=== PATIENT | female | born 1990 | race Two or more races ===

== ENCOUNTER 2024-07-05 18:41 | Emergency (ER) | payer MEDICAID, OTHER ==
[~2024-07-05] VITALS: Ht 170.2 cm; Wt 97.0 kg
[2024-07-05 19:18] LABS: Eosinophils # (auto) 0.1 10 ^3/uL (0-0.8); Lymphocytes # (auto) 1.5 10 ^3/uL (0.4-5.4); Monocytes # (auto) 0.5 10 ^3/uL (0-1.3); Neutrophils # (auto) 6.1 10 ^3/uL (1.6-8.6); White Blood Cell 8.2 10^3/uL (4.4-10.8)
[2024-07-05 19:19] LABS: Basophils # (auto) 0 10 ^3/uL (0-0.2); Basophils % (auto) 0.6 % (0.0-2.0); Eosinophils % (auto) 1.6 % (0.0-7.0); Hematocrit 38.7 % (36.0-46.0); Hemoglobin 12.6 g/dL (12.2-16.2); Mean Corpuscular Hemoglobin 26.2 pg (28.0-32.0); Mean Corpuscular Hgb Conc. 32.4 g/dL (32.0-36.0); Mean Corpuscular Volume 80.9 fL (80.0-100.0); Monocytes % (auto) 5.7 % (0.0-12.0); Neutrophils % (auto) 74.1 % (37.0-80.0); Platelet Count (auto) 274 10^3/uL (140-450); Red Blood Cells 4.78 10^6/uL (4.0-5.20); Red Cell Distribution Width 15.4 % (11.8-14.3)
[2024-07-05 19:23] LABS: Chloride 103 mmol/L (98-107); Sodium 138 mmol/L (136-145)
[2024-07-05 19:24] LABS: Anion Gap 10 (5-15); Carbon Dioxide 25 mmol/L (20-31)
[2024-07-05 19:29] LABS: BUN/Creatinine Ratio 12.7 (10.0-20.0); Blood Urea Nitrogen 10 mg/dL (9-23); Glucose 94 mg/dL (74-106)
[2024-07-05 19:30] LABS: Calcium 10.4 mg/dL (8.7-10.4)
[2024-07-05 20:25] LABS: Urine Bacteria None Seen /hpf (None Seen)
[2024-07-05 20:43] LABS: Urine Blood 3+ /uL (Negative); Urine Clarity Clear (Clear); Urine Color Yellow (Yellow); Urine Mucus FEW (None Seen); Urine Protein, UAD TRACE (Negative); Urine Specific Gravity 1.026 (1.001-1.035); Urine Squamous Epithelial Cell FEW /hpf (<5); Urine Urobilinogen Normal (Negative); Urine WBC 3 /HPF (0-5); Urine pH 5.5 (5.0-9.0)
[2024-07-05 21:19] VITALS: BP 118/48; PULSE 85; RESP 14; TEMP 98.8; O2SAT 100
--- NOTE | 2024-07-05 21:54 | DVH ---
OB EVALUATION, LESS THAN 14 WEEKS CLINICAL HISTORY: Vaginal bleed COMPARISON: None TECHNIQUE: Grayscale, color-flow Doppler, and spectral Doppler ultrasound of the pelvis is performed by transabdominal and transvaginal technique. FINDINGS: The uterus measures approximately 8.0 x 5.2 x 4.0 cm. Heterogeneous rounded lesion in the uterine bod y measuring approximately 1.6 cm. Intrauterine gestational sac and pole identified. Mean gestational sac diameter 1.7 cm. [place]- rump length 0.3 cm. Average ultrasound age 6 weeks 0 days. Estimated due date 02/28/2025. heart rate 79 beats per minute. No sizable perigestational hematoma identified at this time. The right ovary measures 2.9 x 1.4 x 2.7 cm. The left ovary measures 3.2 x 1.3 x 1.4 cm. Both ovaries demonstrate dopplerable blood flow on spectral analysis. No free fluid identified in the cul-de-sac. IMPRESSION: Single living intrauterine gestation as above. bradycardia. Recommend close interval follow-up. Solid-appearing lesion in the right uterine body may represent a fibroid.
--- NOTE | 2024-07-05 23:21 | ED.PDOC ---
ADMINISTRATIVE SUPPORT TECHNICIAN HPI Comments This patient is a morbidly obese 34-year-old female who arrives the ED today for evaluation of vaginal bleeding concerns for the past two days. Patient states that she Had heavy bleeding on day one that lightened up and then occurred a little heavier this afternoon. Patient is with multiple miscarriages. Patient denies any fever nausea or vomiting. Vital signs were stable at arrival. Chief Complaint: Vaginal Bleed Time Seen by MD: 18:42 Reviewed Notes: Nurses Notes Allergies: Coded Allergies: NO KNOWN ALLERGIES (Unverified , 07/05/24) Information Source: Patient Mode of Arrival: Ambulatory Timing: Days Prehospital treatment: None Severity: Moderate Bleeding Quality: Bright Red Onset Of Mass/Bleeding: Spontaneous Past Medical History PAST MEDICAL HISTORY: Denies Surgical History: Denies all surgeries JOINT SUPERVISOR History: No Pertinent JOINT SUPERVISOR History Family History Family History: Reviewed,noncontributory to illness, No family hx of Cancer, No family hx of DM, No family hx of Heart beatriz, No family hx of HTN, No family hx ofKidney beatriz, No family hx of Liver beatriz, No family hx of Lung beatriz, No family hx of Stroke Social History Smoker: Non-Smoker Alcohol: Denies ETOH Use Drugs: Denies Drug Use Lives In: Home Constitutional: denies: chills, diaphoresis, fatigue, fever, malaise, sweats, weakness, others EENTM: denies: blurred vision, double vision, ear bleeding, ear discharge, ear drainage, ear pain, ear ringing, eye pain, eye redness, hearing loss, mouth pain, mouth swelling, nasal discharge, nose bleeding, nose congestion, nose pain, photophobia, tearing, throat pain, throat swelling, voice changes, others Respiratory: denies: cough, hemoptysis, orthopnea, SOB at rest, shortness of breath, SOB with excertion, stridor, wheezing, others Cardiovascular: denies: chest pain, dizzy spells, diaphoresis, Dyspnea on exertion, edema, irregular heart beat, left arm pain, lightheadedness, palpitations, PND, syncope, others Gastrointestinal: reports: abdominal pain; denies: abdomen distended, blood streaked bowels, constipated, diarrhea, dysphagia, difficulty swallowing, hematemesis, melena, nausea, poor appetite, poor fluid intake, rectal bleeding, rectal pain, vomiting, others Genitourinary: reports: abnormal vagina bleeding; denies: burning, dyspareunia, dysuria, flank pain, frequency, hematuria, incontinence, pain, , vagina discharge, urgency, others Neurological: denies: dizziness, fainting, headache, left sided numbness, left sided weakness, numbness, paresthesia, pre-existing deficit, right sided numbness, right sided weakness, seizure, speech problems, tingling, tremors, weakness, others Musculoskeletal: denies: back pain, gout, joint pain, joint swelling, muscle pain, muscle stiffness, neck pain, others Integumetry: denies: bruises, change in color, change in hair/nails, dryness, laceration, lesions, lumps, rash, wounds, others Allergic/Immunocompromised: denies: Difficulty Healing, Frequent Infections, Hives, Itching, others Hematologic/Lymphatic: denies: anemia, blood clots, easy bleeding, easy bruising, swollen glands, others Endocrine: denies: excessive hunger, excessive sweating, excessive thirst, excessive urination, flushing, intolerance to cold, intolerance to heat, unexplained weight gain, unexplained weight loss, others Psychiatric: denies: anxiety, bipolar disorder, depression, hopeless, panic disorder, schizophrenia, sleepless, suicidal, others Physical Exam General Appearance: Mild Distress (Moderate distress due to anxiety related to her bleeding concerns almost more than pain issues. Patient declined any pain medication while at the facility.), Obese HEENT: Normal ENT Inspection, Pharynx Normal, TMs Normal Neck: Full Range of Motion, Non-Tender, Normal, Normal Inspection Respiratory: Chest Non-Tender, Lungs Clear, No Accessory Muscle Use, No Respiratory Distress, Normal Breath Sounds Cardiovascular: No Edema, No JVD, No Murmur, No Gallop, Normal Peripheral Pulses, Regular Rate/Rhythm Breast Exam: Deferred Gastrointestinal: No Pulsatile Mass, Normal Bowel Sounds, Soft, Other ( Diffuse bilateral lower tenderness to palpation. Difficult to assess due to body habitus.) Genitalia: Deferred Pelvic: Deferred Rectal: Deferred Extremities: No calf tenderness, Normal capillary refill, Normal inspection, Normal range of motion, Non-tender, No pedal edema Neurologic: Alert, No Motor Deficits, Normal Affect, Normal Mood, No Sensory Deficits Cerebellar Function: Normal Reflexes: Normal Skin: Dry, Normal Color, Warm Lymphatic: No Adenopathy Was a procedure done? Was a procedure done?: No Differential Diagnosis (JOINT SUPERVISOR) Vaginal Bleeding: - Complete, - Incomplete, - Inevitable, - Threatened, Menorrhagia, Menstrual Bleeding X-Ray, Labs, Meds, VS Vital Signs Date Time Temp Pulse Resp B/P (MAP) Pulse Ox O2 Delivery O2 Flow Rate FiO2 07/05/24 21:19 98.8 85 14 118/48 (71) 100 98.8 07/05/24 18:56 98.6 91 16 113/53 (73) 100 98.6 Lab Test 07/05/24 18:58 07/05/24 18:51 Range/Units White Blood Count 8.2 4.4-10.8 10^3/uL Red Blood Count 4.78 4.0-5.20 10^6/uL Hemoglobin 12.6 12.2-16.2 g/dL Hematocrit 38.7 36.0-46.0 % Mean Corpuscular Volume 80.9 80.0-100.0 fL Mean Corpuscular Hemoglobin 26.2 L 28.0-32.0 pg Mean Corpuscular Hemoglobin Concent 32.4 32.0-36.0 g/dL Red Cell Distribution Width 15.4 H 11.8-14.3 % Platelet Count 274 140-450 10^3/uL Mean Platelet Volume 8.5 6.9-10.8 fL Neutrophils (%) (Auto) 74.1 37.0-80.0 % Lymphocytes (%) (Auto) 18.0 10.0-50.0 % Monocytes (%) (Auto) 5.7 0.0-12.0 % Eosinophils (%) (Auto) 1.6 0.0-7.0 % Basophils (%) (Auto) 0.6 0.0-2.0 % Neutrophils # (Auto) 6.1 1.6-8.6 10 ^3/uL Lymphocytes # (Auto) 1.5 0.4-5.4 10 ^3/uL Monocytes # (Auto) 0.5 0-1.3 10 ^3/uL Eosinophils # (Auto) 0.1 0-0.8 10 ^3/uL Basophils # (Auto) 0 0-0.2 10 ^3/uL Nucleated Red Blood Cells 0.0 % Sodium Level 138 136-145 mmol/L Potassium Level 4.0 3.5-5.1 mmol/L Chloride Level 103 98-107 mmol/L Carbon Dioxide Level 25 20-31 mmol/L Anion Gap 10 5-15 Blood Urea Nitrogen 10 9-23 mg/dL Creatinine 0.79 0.550-1.02 mg/dL Glomerular Filtration Rate Calc 101 >90 mL/min BUN/Creatinine Ratio 12.7 10.0-20.0 Serum Glucose 94 74-106 mg/dL Calcium Level 10.4 8.7-10.4 mg/dL Beta HCG, Quantitative 8112.9 H 1.5-4.2 mIU/mL Urine Color Yellow Yellow Urine Clarity Clear Clear Urine pH 5.5 5.0-9.0 Urine Specific [place] 1.026 1.001-1.035 Urine Protein Trace H Negative Urine Ketones Negative Negative Urine Blood 3+ H Negative /uL Urine Nitrite Negative Negative Urine Bilirubin Negative Negative Urine Urobilinogen Normal Negative mg/dL Urine Leukocyte Esterase Negative Negative /uL Urine RBC 3 0 - 4 /hpf Urine Microscopic WBC 3 0-5 /HPF Urine Squamous Epithelial Cells Few <5 /hpf Urine Bacteria None seen None Seen /hpf Urine Mucus Few None Seen Urine Glucose Normal Normal mg/dL X-Ray, Labs, Meds, VS Comment All studies performed the ED were evaluated by me personally. Serum labora tories were unremarkable for any concerning systemic issues. Patient's beta- hCG was 8112. OB ultrasound revealed a six week 0 day , but concerning for a heart tone of 79. Discussed the case with Dr. Angulo for advisement. She recommended with the patient returned tomorrow for repeat of heart tones to assess any patterns. Advised patient to return tomorrow for re-evaluation. Time of 1ST Reevaluation: 23:30 Reevaluation 1ST: Improved Consultation: PCP, resource director Patient Education/Counseling: Diagnosis, Treatment Family Education/Counseling: Diagnosis, Treatment Departure 1 Departure Time of Disposition: 23:31 Impression: Primary Impression: Vaginal bleeding before 22 weeks gestation Disposition: HOME / SELF CARE / HOMELESS Condition: Stable Additional Instructions: Advised Tylenol as needed for pain relief. Patient should return to ED tomorrow for re-evaluation of heart tones. Discharged With: Self, Friend Critical Care Note Critical Care Time?: No Stability Stability form required: No Heart Score Heart Score: Heart Score Response (Comments) Value History N/A 0 EKG N/A 0 Age N/A 0 Risk Factors N/A 0 Troponin N/A 0 Total 0 VIPUL CRAWLEY PAC July 05, 2024 23:21
== END 2024-07-06 00:04 | disposition home or self-care (01) ==
LOC: ER 18:47
DX: O20.0 Threatened abortion (principal); O26.891 Other specified pregnancy related conditions, first trimester; E66.01 Morbid (severe) obesity due to excess calories; Z68.33 Body mass index [BMI] 33.0-33.9, adult; Z3A.01 Less than 8 weeks gestation of pregnancy
CPT/HCPCS: 36415; 76801; 76817; 80048; 81001; 84702; 85025

== ENCOUNTER 2024-07-06 18:21 | Emergency (ER) | payer MEDICAID ==
[~2024-07-06] VITALS: Ht 170.2 cm; Wt 97.7 kg
[2024-07-06 19:21] LABS: Urine Bacteria FEW /hpf (None Seen); Urine Blood 3+ /uL (Negative); Urine Clarity Clear (Clear); Urine Color Colorless (Yellow); Urine Protein, UAD Negative (Negative); Urine Specific Gravity 1.004 (1.001-1.035); Urine Squamous Epithelial Cell FEW /hpf (<5); Urine Urobilinogen Normal (Negative); Urine WBC 1 /HPF (0-5)
--- NOTE | 2024-07-06 20:15 | DVH ---
OB ULTRASOUND <14 WEEKS: HISTORY: BRADYCARDIAC ACTIVITY TECHNIQUE: Multiple real-time grayscale sonographic images of the pelvis with duplex Doppler color f low, spectral and M-mode analysis. TRANSDUCERS: C1-6 COMPARISON: US OB ULTRASOUND COMP LESS 14WKS on DOS: 07/05/24 FINDINGS: The uterus measures 8.9 x 4.4 x 4.3 cm Right ovary measures 2.7 cm with normal Doppler color flow. Left ovary is not clearly visualized IUP single fetus at 5 weeks, 5 days average ultrasound age based on mean crown-rump length of 0.25 c m and gestational sac size of 1.37 cm No heart rate detected at this time Yolk sac is present. IMPRESSION: Single intrauterine with an estimated gestational age of 5 weeks, 5 days AUA corresponding to an CARINA of March 03, 2024. No heart rate is detected at this time.
[2024-07-06 20:25] VITALS: BP 111/61; PULSE 68; RESP 18; TEMP 98.3; O2SAT 98
--- NOTE | 2024-07-06 21:24 | ED.PDOC ---
SUPERVISOR STERILE PROCESSING HPI Comments This patient is a pleasant but morbidly obese 34-year-old female who arrives the ED today for re-evaluation of concerns. Patient has been having vaginal bleeding events over the past few days. Patient was seen this facility yesterday and evaluated with ultrasound at that time. Ultrasound confirmed a six week 0 day , but there were concerns from a reduced heart rate of approximately 78. Patient returns today based on Dr. Bower recommendations for repeat OB ultrasound. Patient's vital signs were stable. Chief Complaint: Vaginal Bleed Time Seen by MD: 18:36 Reviewed Notes: Nurses Notes Allergies: Coded Allergies: NO KNOWN ALLERGIES (Unverified , 07/05/24) Information Source: Patient, Friend Mode of Arrival: Ambulatory Timing: Days Severity: Moderate Bleeding Quality: Bright Red Onset Of Mass/Bleeding: Spontaneous Past Medical History PAST MEDICAL HISTORY: Denies Surgical History: Denies all surgeries PATIENT SAFETY SITTER History: No Pertinent PATIENT SAFETY SITTER History Family History Family History: Reviewed,noncontributory to illness, No family hx of Cancer, No family hx of DM, No family hx of Heart beatriz, No family hx of HTN, No family hx ofKidney beatriz, No family hx of Liver beatriz, No family hx of Lung beatriz, No family hx of Stroke Social History Smoker: Non-Smoker Alcohol: Denies ETOH Use Drugs: Denies Drug Use Lives In: Home Constitutional: denies: chills, diaphoresis, fatigue, fever, malaise, sweats, weakness, others EENTM: denies: blurred vision, double vision, ear bleeding, ear discharge, ear drainage, ear pain, ear ringing, eye pain, eye redness, hearing loss, mouth pain, mouth swelling, nasal discharge, nose bleeding, nose congestion, nose pain, photophobia, tearing, throat pain, throat swelling, voice changes, others Respiratory: denies: cough, hemoptysis, orthopnea, SOB at rest, shortness of breath, SOB with excertion, stridor, wheezing, others Cardiovascular: denies: chest pain, dizzy spells, diaphoresis, Dyspnea on exertion, edema, irregular heart beat, left arm pain, lightheadedness, palpitations, PND, syncope, others Gastrointestinal: denies: abdomen distended, abdominal pain, blood streaked bowels, constipated, diarrhea, dysphagia, difficulty swallowing, hematemesis, melena, nausea, poor appetite, poor fluid intake, rectal bleeding, rectal pain, vomiting, others Genitourinary: reports: abnormal vagina bleeding; denies: burning, dyspareunia, dysuria, flank pain, frequency, hematuria, incontinence, pain, , vagina discharge, urgency, others Neurological: denies: dizziness, fainting, headache, left sided numbness, left sided weakness, numbness, paresthesia, pre-existing deficit, right sided nu mbness, right sided weakness, seizure, speech problems, tingling, tremors, weakness, others Musculoskeletal: denies: back pain, gout, joint pain, joint swelling, muscle pain, muscle stiffness, neck pain, others Integumetry: denies: bruises, change in color, change in hair/nails, dryness, laceration, lesions, lumps, rash, wounds, others Allergic/Immunocompromised: denies: Difficulty Healing, Frequent Infections, Hives, Itching, others Hematologic/Lymphatic: denies: anemia, blood clots, easy bleeding, easy bruising, swollen glands, others Endocrine: denies: excessive hunger, excessive sweating, excessive thirst, excessive urination, flushing, intolerance to cold, intolerance to heat, unexplained weight gain, unexplained weight loss, others Psychiatric: denies: anxiety, bipolar disorder, depression, hopeless, panic disorder, schizophrenia, sleepless, suicidal, others Physical Exam General Appearance: Mild Distress (Moderate distress due to anxiety related to today's visit rather than any pain concerns.), Obese HEENT: Normal ENT Inspection, Pharynx Normal, TMs Normal Neck: Full Range of Motion, Non-Tender, Normal, Normal Inspection Respiratory: Chest Non-Tender, Lungs Clear, No Accessory Muscle Use, No Respiratory Distress, Normal Breath Sounds Cardiovascular: No Edema, No JVD, No Murmur, No Gallop, Normal Peripheral Pulses, Regular Rate/Rhythm Breast Exam: Deferred Gastrointestinal: No Organomegaly, Non Tender, No Pulsatile Mass, Normal Bowel Sounds, Soft Genitalia: Deferred Pelvic: Deferred Rectal: Deferred Extremities: No calf tenderness, Normal capillary refill, Normal inspection, Normal range of motion, Non-tender, No pedal edema Neurologic: Alert, No Motor Deficits, Normal Affect, Normal Mood, No Sensory Deficits Cerebellar Function: Normal Reflexes: Normal Skin: Dry, Normal Color, Warm Lymphatic: No Adenopathy Was a procedure done? Was a procedure done?: No Differential Diagnosis (PATIENT SAFETY SITTER) Vaginal Bleeding: - Complete, - Incomplete, - Missed, - Threatened, Abruptio Placentae, Menorrhagia, Menometrorrhagia, Menstrual Bleeding Vaginal Discharge: UTI X-Ray, Labs, Meds, VS Vital Signs Date Time Temp Pulse Resp B/P (MAP) Pulse Ox O2 Delivery O2 Flow Rate FiO2 07/06/24 20:25 98.3 68 18 111/61 (78) 98 98.3 07/06/24 18:32 98.1 88 18 124/62 (82) 99 98.1 Lab Test 07/06/24 18:42 Range/Units Urine Color Colorless Yellow Urine Clarity Clear Clear Urine pH 6.0 5.0-9.0 Urine Specific [place] 1.004 1.001-1.035 Urine Protein Negative Negative Urine Ketones Negative Negative Urine Blood 3+ H Negative /uL Urine Nitrite Negative Negative Urine Bilirubin Negative Negative Urine Urobilinogen Normal Negative mg/dL Urine Leukocyte Esterase Negative Negative /uL Urine RBC <1 0 - 4 /hpf Urine Microscopic WBC 1 0-5 /HPF Urine Squamous Epithelial Cells Few <5 /hpf Urine Bacteria Few H None Seen /hpf Urine Glucose Normal Normal mg/dL X-Ray, Labs, Meds, VS Comment All studies performed the ED were evaluated by me personally. Urinalysis was unremarkable for any urinary tract infection concern. OB ultrasound was remarkable for a five week five day gestational., but there was no heart tones appreciated. Consulted Dr. Angulo and advised of imaging findings. She stated that there is a possibility that the is still viable and that the patient would need to repeat her transvaginal ultrasound one week. Patient was advised to follow up with a an OB or return to this facility one week for re-evaluation. Time of 1ST Reevaluation: 21:21 Reevaluation 1ST: Unchanged Consultation: PCP Patient Education/Counseling: Diagnosis, Treatment Family Education/Counseling: Diagnosis, Treatment Departure 1 Departure Time of Disposition: 21:22 Impression: Primary Impression: Vaginal bleeding before 22 weeks gestation Additional Impression: Threatened miscarriage Disposition: HOME / SELF CARE / HOMELESS Condition: Stable Additional Instructions: [facility] facility for OB ultrasound in one week for re-evaluation at that time. Discharged With: Self, Friend Critical Care Note Critical Care Time?: No Stability Stability form required: No Heart Score Heart Score: Heart Score Response (Comments) Value History N/A 0 EKG N/A 0 Age N/A 0 Risk Factors N/A 0 Troponin N/A 0 Total 0 VIPUL CRAWLEY PAC July 06, 2024 21:23
== END 2024-07-06 21:37 | disposition home or self-care (01) ==
LOC: ER 18:25
DX: O20.0 Threatened abortion (principal)
CPT/HCPCS: 76801; 76817; 81001